=== PATIENT | male | born 1975 | race Caucasian/White ===

== ENCOUNTER → 2021-07-15 | Outpatient (CLI) | payer BC, OTHER | LOC: HYPER 13:31 | PROVIDERS: ATTEND Emergency Medicine | DX: T81.32XA Disruption of internal operation (surgical) wound, not elsewhere classified, initial encounter (principal); L97.422 Non-pressure chronic ulcer of left heel and midfoot with fat layer exposed; S92.001A Unspecified fracture of right calcaneus, initial encounter for closed fracture; S91.002A Unspecified open wound, left ankle, initial encounter; I10 Essential (primary) hypertension; E66.9 Obesity, unspecified; Z68.30 Body mass index [BMI] 30.0-30.9, adult; Z79.82 Long term (current) use of aspirin; Z79.899 Other long term (current) drug therapy; Z95.5 Presence of coronary angioplasty implant and graft; W11.XXXA Fall on and from ladder, initial encounter; Y93.89 Activity, other specified; Y92.238 Other place in hospital as the place of occurrence of the external cause; Y99.8 Other external cause status; Y83.8 Other surgical procedures as the cause of abnormal reaction of the patient, or of later complication, without mention of misadventure at the time of the procedure ==

== ENCOUNTER → 2021-07-15 | Outpatient (CLI) | payer BC, OTHER | LOC: SJCVCIMAG 15:20 | PROVIDERS: ATTEND Emergency Medicine | DX: M79.605 Pain in left leg (principal); I73.9 Peripheral vascular disease, unspecified; L97.828 Non-pressure chronic ulcer of other part of left lower leg with other specified severity ==

== ENCOUNTER → 2021-07-22 | Outpatient (CLI) | payer BC, OTHER | LOC: HYPER 09:54 | PROVIDERS: ATTEND Emergency Medicine | DX: T81.32XD Disruption of internal operation (surgical) wound, not elsewhere classified, subsequent encounter (principal); L97.422 Non-pressure chronic ulcer of left heel and midfoot with fat layer exposed; S92.001D Unspecified fracture of right calcaneus, subsequent encounter for fracture with routine healing; I10 Essential (primary) hypertension; E66.9 Obesity, unspecified; Z68.30 Body mass index [BMI] 30.0-30.9, adult; Z79.82 Long term (current) use of aspirin; Z79.899 Other long term (current) drug therapy; Z95.5 Presence of coronary angioplasty implant and graft; W11.XXXD Fall on and from ladder, subsequent encounter; Y83.8 Other surgical procedures as the cause of abnormal reaction of the patient, or of later complication, without mention of misadventure at the time of the procedure ==

== ENCOUNTER → 2021-08-11 | Outpatient (CLI) | payer BC, OTHER | LOC: HYPER 10:05 | PROVIDERS: ATTEND Emergency Medicine | DX: T81.32XD Disruption of internal operation (surgical) wound, not elsewhere classified, subsequent encounter (principal); L97.422 Non-pressure chronic ulcer of left heel and midfoot with fat layer exposed; S92.001D Unspecified fracture of right calcaneus, subsequent encounter for fracture with routine healing; I10 Essential (primary) hypertension; E66.9 Obesity, unspecified; Z68.30 Body mass index [BMI] 30.0-30.9, adult; Z79.82 Long term (current) use of aspirin; Z79.899 Other long term (current) drug therapy; Z95.5 Presence of coronary angioplasty implant and graft; W11.XXXD Fall on and from ladder, subsequent encounter; Y83.8 Other surgical procedures as the cause of abnormal reaction of the patient, or of later complication, without mention of misadventure at the time of the procedure ==